=== PATIENT | female | born 1965 | race Caucasian/White ===

== ENCOUNTER 2016-07-07 09:50 | Emergency (ER) | payer OTHER ==
[~2016-07-07 09:50] MED LIST: ALBUTEROL HFA6.7 GM IH; ALBUTEROL S3 ML/VIAL NEB; ASPIR 8181 MG PO; GLUCOPHAGE500 MG PO; HUMALOG MI100 UNIT/2 SQ; LASIX40 MG PO; LEVAQUIN750 MG PO; MEDROL4 M1 PO; NEURONTIN800 MG PO; NITROGLYCERIN8.5 GM SL; NITROMIST8.5 GM SL; NOVOLIN 70100 UNIT/1 SQ; PERCOCET 7.5-31 EACH PO; PRAVACHOL40 MG PO; PREDNISONE10 MG PO; PRINIVIL20 MG PO; PROTONIX40 MG PO; SYMBICORT 16010.2 GM IH; SYNTHROID200 MCG PO; SYNTHROID25 MCG PO; ZANAFLEX4 MG PO; ZITHROMAX250 MG PO; ZOFRAN4 MG PO; ZOLOFT100 MG PO
== END 2016-07-07 10:53 | disposition home or self-care (01) ==
LOC: ER 09:50
DX: H66.91 Otitis media, unspecified, right ear (principal); E11.9 Type 2 diabetes mellitus without complications; I25.10 Atherosclerotic heart disease of native coronary artery without angina pectoris; J45.909 Unspecified asthma, uncomplicated; Z87.442 Personal history of urinary calculi; Z85.42 Personal history of malignant neoplasm of other parts of uterus; Z79.4 Long term (current) use of insulin; Z79.84 Long term (current) use of oral hypoglycemic drugs; Z79.82 Long term (current) use of aspirin; Z79.899 Other long term (current) drug therapy; Z88.0 Allergy status to penicillin; Z88.8 Allergy status to other drugs, medicaments and biological substances; Z88.2 Allergy status to sulfonamides; Z91.048 Other nonmedicinal substance allergy status